=== PATIENT | male | born 1955 | race Caucasian/White ===

== ENCOUNTER → 2016-06-26 | Outpatient (CLI) | payer OTHER | LOC: FIMAGING 08:51 | PROVIDERS: ATTEND Internal Medicine | DX: R10.11 Right upper quadrant pain (principal) | CPT/HCPCS: 78227; A9537 ==

== ENCOUNTER 2018-05-15 20:29 | Emergency (ER) | payer OTHER ==
--- NOTE | 2018-05-15 21:33 | EDPHY ---
H & P Time Seen by Provider: 05/15/18 20:44 HPI/ROS: CHIEF COMPLAINT: Accidentally swallowed dental bridge HISTORY OF PRESENT ILLNESS: Has an upper temporary dental bridge about 4-5 teeth wide and was chewing at tonight and then thinks he accidentally swallowed it. Was eating pizza at the time about an hour prior to arrival. He feels like it is lodged in the right side of his throat in his neck. No coughing or choking. No trouble breathing. No vomiting. Object does not have sharp edges. REVIEW OF SYSTEMS: Eye: no change in vision ENT: HPI Cardiac: no chest pain or syncope Pulmonary: no cough or SOB Abdomen: no vomiting, diarrhea, abdominal pain Musculoskeletal: no back pain Skin: no rash Neuro: no headache Constitutional: no fever : no urinary symptoms A comprehensive 10 point review of systems is otherwise negative aside from elements mentioned in the history of present illness. PAST MEDICAL HISTORY: Hypertension, bipolar, high cholesterol, head neck cancer Social history: Nonsmoker General Appearance: Alert and conversant, cooperative. Eyes: No scleral icterus. ENT, Mouth: Normal mucous membranes. Normal pharynx without trismus or angioedema or swelling. Respiratory: Normal respiratory effort, breath sounds equal, lungs are clear to auscultation. No stridor or drooling. Cardiovascular: Regular rate and rhythm. Gastrointestinal: Abdomen is soft and non tender. Neurological: Alert and ambulatory. Skin: Warm and dry, no rashes. Musculoskeletal: Normal range of motion of the neck. Psychiatric: Not agitated. Emergency Department course/MDM: 2129: Not able to visualize on soft tissue neck or chest x-ray. Discussed with Dr. Lewis. CT noncontrast neck discussed and consented. 2145: Not seen on CT discussed with Dr. Lewis. Patient does not have coughing or wheezing or stridor or feeling of esophageal foreign body. Likely at scratched him on the way down and is now in his stomach. Explained the patient will likely pass in his stool, there is a small possibility will not. Return for gastrointestinal symptoms, GI referral. Discussed with Sirisha 2154; will facilitate followup if needed. Smoking Status: Never smoked Constitutional: Initial Vital Signs Temperature (C) 36.7 C 05/15/18 20:33 Heart Rate 90 05/15/18 20:33 Respiratory Rate 18 05/15/18 20:33 Blood Pressure 122/86 H 05/15/18 20:33 O2 Sat (%) 93 05/15/18 20:33 O2 Delivery Mode Room Air Allergies/Adverse Reactions: No Known Allergies Allergy (Verified 05/15/18 20:32) Home Medications: Medication Instructions Recorded Abilify 09/21/13 Aspirin 09/21/13 Clonazepam 09/21/13 LaMICtal 09/21/13 Levothyroxine 09/21/13 Lipitor 10 mg (RX) 09/21/13 Lisinopril 09/21/13 Trileptal 09/21/13 Tamsulosin HCl 12/04/13 Medical Decision Making - Diagnostics Imaging Results: Imaging Impressions Soft Tissue Neck X-Ray 05/15/18 20:50 Impression: 1. A dental bridge is not identified. 2. See above report for additional findings. Chest X-Ray 05/15/18 21:12 Impression: 1. Negative for radiopaque foreign body. 2. Suspect airways disease. Neck CT 05/15/18 21:27 Impression: A radiopaque foreign body is not identified. Results called and discussed with Allan Saab M.D., on May 15, 2018 at 2149. Imaging: Discussed imaging studies w/ metal forger's assistant Radiologist Departure - Departure Disposition: Home, Routine, Self-Care Clinical Impression: Swallowed foreign body Condition: Good Instructions: Foreign Body Ingestion (ED) Additional Instructions: Please return if you get fever or chills or abdominal pain or vomiting. If you have any did abdominal discomfort next week you should follow up with Dr. Bennett from Gastroenterology. Referrals: Amber Grimm MD [Primary Care Provider] - As per Instructions Efe Bennett MD [Medical Doctor] - As per Instructions
[2018-05-15 21:57] VITALS: BP 106/70
== END 2018-05-15 21:56 | disposition home or self-care (01) ==
DX: T18.9XXA Foreign body of alimentary tract, part unspecified, initial encounter (principal); Y92.9 Unspecified place or not applicable